=== PATIENT | female | born 1985 | race Caucasian/White ===

== ENCOUNTER 2022-03-23 20:40 | Emergency (ER) | payer OTHER ==
[2022-03-23 20:54] VITALS: RESP 16
[2022-03-23] MEDS ORDERED: KETOROLAC 15 MG/ML 1 ML VIAL IM STA (21:34)
[2022-03-23] MEDS ORDERED: LIDOCAINE 1% INJ 10MG/ML (30 ML VIAL-PF) SQ ONE (21:34)
--- NOTE | 2022-03-23 22:11 | ED ---
General Adult HPI - General Chief complaint: Skin/Abscess/Foreign Body Stated complaint: Cyst Time Seen by Provider: 03/23/22 20:57 Source: patient, RN notes reviewed Mode of arrival: ambulatory Limitations: no limitations - History of Present Illness Initial comments: 36-year-old female presents to the emergency Department with complaints of pain and swelling to the right labial area. Patient states she has had an abscess in the past on the left side that had to be drained and is concerned that this is the same. Reports discomfort has increased over the past 3 days. Did not take anything for pain prior to arrival. Denies any sexual partners. No fever, chills, vaginal discharge/bleeding, or dysuria. - Related Data Previous Rx's Medication Instructions Recorded Clindamycin [Cleocin] 300 mg PO Q6H 7 Days #56 capsule 03/23/22 Ibuprofen [Motrin] 600 mg PO Q8HR PRN #30 tab 03/23/22 ceFIXime [Cefixime] 400 mg PO DAILY 7 Days #7 capsule 03/23/22 Allergies Allergy/AdvReac Type Severity Reaction Status Date / Time acetaminophen Allergy Rash/Hives Verified 03/23/22 20:46 [From Darvocet-N] fluconazole [From Diflucan] Allergy Rash/Hives Verified 03/23/22 20:46 hydrocodone [From Vicodin] Allergy Rash/Hives Verified 03/23/22 20:46 latex Allergy Rash/Hives Verified 03/23/22 20:46 Penicillins Allergy Rash/Hives Verified 03/23/22 20:46 propoxyphene Allergy Rash/Hives Verified 03/23/22 20:46 [From Darvocet-N] Sulfa (Sulfonamide Allergy Anaphylaxis Verified 03/23/22 20:46 Antibiotics) Review of Systems ROS Statement: Those systems with pertinent positive or pertinent negative responses have been documented in the HPI. ROS Other: All systems not noted in ROS Statement are negative. Past Medical History Past Medical History: No Reported History History of Any Multi-Drug Resistant Organisms: None Reported Past Surgical History: Hysterectomy, Tubal Ligation Past Psychological History: Bipolar Smoking Status: Never smoker Past Alcohol Use History: Occasional Past Drug Use History: Marijuana General Exam Limitations: no limitations General appearance: alert, in no apparent distress Respiratory exam: Present: normal lung sounds bilaterally. Absent: respiratory distress, wheezes, rales, rhonchi, stridor Cardiovascular Exam: Present: regular rate, normal rhythm, normal heart sounds. Absent: systolic murmur, diastolic murmur, rubs, gallop, clicks GI/Abdominal exam: Present: soft, normal bowel sounds. Absent: distended, tenderness, guarding, rebound, rigid External exam: Present: other (Erythematous fluctuant area right labia. Tender to touch. No drainage.) Neurological exam: Present: alert, oriented X3, normal gait Psychiatric exam: Present: normal affect, normal mood Course Vital Signs 03/23/22 03/23/22 03/23/22 20:42 20:51 23:50 Temperature 98.7 F 98.6 F 98.4 F Pulse Rate 81 79 78 Respiratory 18 16 16 Rate Blood Pressure 97/49 99/72 110/68 O2 Sat by Pulse 96 99 99 Oximetry 03/23/22 23:51 Temperature 98.4 F Pulse Rate 78 Respiratory 16 Rate Blood Pressure 110/68 O2 Sat by Pulse 99 Oximetry Procedures - Incision & Drainage Consent Obtained: verbal consent Indication: fluctuant abscess Site: other (bartholin gland abscess) Size (cm): 1 Anesthetic Used: lidocaine 1% Amount (mLs): 1 I&D Cleaning Method: Iodine Sterile Field Used?: Yes Scalpel Used: #11 Needle Aspiration Performed?: Yes Irrigation Performed?: Yes I&D Drainage Obtained: Pus, Blood Packing: Other (Patient declines Word catheter) Culture Obtained?: Yes Patient Tolerated Procedure: well, no complications Medical Decision Making - Medical Decision Making 36-year-old female presents to the emergency department for evaluation of Bartholin's gland abscess. Fluctuant area palpable therefore site was cleansed and anesthetized; incision and drainage was performed with significant brown/bloody exudate. After irrigation, patient declines Word catheter. Patient tolerated procedure well and she is prescribed oral antibiotic. Instructed on wound care and follow-up instructions. Return parameters discussed in detail. Patient verbalizes understanding and agrees with this plan. Attending: Mando. Disposition Clinical Impression: Bartholin gland cyst Disposition: HOME SELF-CARE Condition: Stable Instructions (If sedation given, give patient instructions): Bartholin Cyst (ED) Additional Instructions: Take antibiotics as prescribed. Consider probiotic or cultured food when taking these medications. Apply warm compress or sitz bath 4-6 times daily for the next 2 days. Avoid intercourse for the next 7 days. Follow-up with your PCP or [facility] for a recheck in 48-72 hours. Return to the emergency department with any new, worsening, or concerning symptoms such as fever or worsening pain. Prescriptions: ceFIXime [Cefixime] 400 mg PO DAILY 7 Days #7 capsule Clindamycin [Cleocin] 300 mg PO Q6H 7 Days #56 capsule Ibuprofen [Motrin] 600 mg PO Q8HR PRN #30 tab PRN Reason: Pain Is patient prescribed a controlled substance at d/c from ED?: No Referrals: Annie Marin NPC [Primary Care Provider] - 1-2 days Time of Disposition: 23:41
[2022-03-23] MEDS ORDERED: CLINDAMYCIN 150 MG CAP PO STA (23:14)
[2022-03-23] MEDS ORDERED: CEFDINIR 300 MG CAP PO ONE (23:30)
[2022-03-23 23:51] VITALS: BP 110/68; PULSE 78; TEMP 98.4
== END 2022-03-23 23:50 | disposition home or self-care (01) ==
LOC: EC 20:40
DX: N75.0 Cyst of Bartholin's gland (principal); Z88.2 Allergy status to sulfonamides; Z88.0 Allergy status to penicillin; Z91.040 Latex allergy status; Z88.8 Allergy status to other drugs, medicaments and biological substances; Z90.710 Acquired absence of both cervix and uterus
CPT/HCPCS: 87070; 87205; 56420; 99284; 96372; J2001; J1885